=== PATIENT | female | born 1985 | race Caucasian/White ===

== ENCOUNTER → 2018-04-21 | Outpatient (CLI) | payer BC ==
--- NOTE | 2018-04-21 15:51 | XR ---
EXAMINATION TYPE: XR foot complete RT DATE OF EXAM: 04/21/2018 CLINICAL HISTORY: pain TECHNIQUE: Frontal, lateral and oblique images of the right foot are obtained. COMPARISON: None. FINDINGS: There is no acute fracture/dislocation evident. The joint spaces appear within normal olmos its. The overlying soft tissue appears unremarkable. IMPRESSION: There is no acute fracture or dislocation. ICD 10 NO FRACTURE, INITIAL EVALUATION
== END | disposition home or self-care (01) ==
LOC: RADXRYALE 15:37
PROVIDERS: ATTEND Internal Medicine
DX: S99.921A Unspecified injury of right foot, initial encounter (principal)

== ENCOUNTER → 2019-01-28 | Outpatient (CLI) | payer BC ==
--- NOTE | 2019-01-28 12:18 | MM ---
Reason for exam: screening (asymptomatic). Baseline mammogram. History: Family history of breast cancer in grandmother at age 50 and breast cancer in aunt at age 40. Took hormonal contraceptives beginning at age 16. Physical Findings: Nurse did not find any significant physical abnormalities on exam. MG 3D Screening Mammo W/Cad Bilateral CC and MLO view(s) were taken. There is an oval, circumscribed lower inner quadrant posterior depth mass. No suspicious abnormality on the right. These results were verbally communicated with the patient and result sheet given to the patient on 01/28/19. ASSESSMENT: Incomplete: need additional imaging evaluation, BI-RAD 0 RECOMMENDATION: Ultrasound of the left breast. (lower inner quadrant)
--- NOTE | 2019-01-28 12:20 | USB ---
Reason for exam: additional evaluation requested from abnormal screening. History: Family history of breast cancer in grandmother at age 50 and breast cancer in aunt at age 40. Took hormonal contraceptives beginning at age 16. Physical Findings: Breast exam preformed at baseline screening. US Breast Workup Limited LT Left limited breast ultrasound including focal area of concern, retroareolar and axilla demonstrates a 0.7 x 0.4 x 0.5cm hypoechoic lesion at 8 o'clock, correlates with mammographic finding. These results were verbally communicated with the patient and result sheet given to the patient on 01/28/19. ASSESSMENT: Suspicious, BI-RAD 4 RECOMMENDATION: Aspiration of the left breast. (attempt, if unsuccessful convert to biopsy) Called with mammographic findings and has scheduled an appointment for the patient for 02/02/19 at 3:[address] Simmons. PRELIMINARY REPORT CALLED AND FAXED TO DR. SIMMONS ON 01/28/19.
== END | disposition home or self-care (01) ==
LOC: RADMAMWWP 10:46
PROVIDERS: ATTEND Internal Medicine
DX: Z12.31 Encounter for screening mammogram for malignant neoplasm of breast (principal); R92.8 Other abnormal and inconclusive findings on diagnostic imaging of breast
CPT/HCPCS: 77063; 77067

== ENCOUNTER → 2019-03-10 | Day surgery (SDC) | payer BC ==
[2019-03-10 11:43] VITALS: RESP 16; BMI 26.3
[2019-03-10 13:03] VITALS: BP 105/69; PULSE 60; TEMP 97.7
--- NOTE | 2019-03-10 13:03 | USB ---
EXAMINATION TYPE: US biopsy breast VAD LT, MG diagnostic mammo LT wo CAD DATE OF EXAM: 03/10/2019 CLINICAL HISTORY: N63.20 Left breast mass. Abnormal ultrasound and mammogram. TECHNIQUE: Ultrasound guided core biopsy of left breast with clip placement and follow-up diagnostic two-view mammogram. COMPARISON: Prior ultrasound and mammogram January 28, 2019 FINDINGS: The procedure of ultrasound guided core biopsy was explained to the patient. Benefits, alternatives, and risks were discussed. An informed consent was then obtained. The patient was placed in supine positioning for imaging and for the procedure. Preprocedure ultrasound redemonstrates 5 mm hypoechoic anechoic lesion in clock position left breast. The overlying skin was prepped and draped in usual sterile fashion. Lidocaine was used as anesthetic into the skin. Lidocaine with epinephrine is used as anesthetic in the deeper tissue in the left breast. Under ultrasound guidance, a 12-gauge vacuum assisted biopsy gun device was used to obtain 3 core samples. Following this, a biopsy clip was left at site of lesion. The patient tolerated the procedure well without any immediate complication. The patient was kept in the radiology department for short stay after the procedure and then discharged home in stable condition. Postprocedure mammogram shows successful the alignment of left correlating level of concern on preprocedure mammogram without definitive residual oval 6 mm lesion identified. IMPRESSION: Successful, uncomplicated ultrasound guided core biopsy of area of concern in the left breast, full pathology results to follow. Low index of suspicion noted at time of procedure. 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 Appropriately controlled immunohistochemical studies including calponin demonstrates an intact myoepithelial layer around atypical cells forming rigid glandular profiles negative for Cytokeratin 5/6 confirming atypical duct hyperplasia. Recommendation Surgical consult of the left breast. YOSVANY
== END | disposition home or self-care (01) ==
LOC: RADUSWWP 11:21
PROVIDERS: ATTEND Internal Medicine
DX: N62 Hypertrophy of breast (principal); N60.22 Fibroadenosis of left breast
CPT/HCPCS: 88305; 88342; 88341; 77065; 19083; A4648; J2001

== ENCOUNTER → 2019-03-26 | Outpatient (CLI) | payer BC ==
[2019-03-26 13:58] VITALS: BP 129/79; PULSE 78; RESP 16; TEMP 97.7; BMI 26.3
--- NOTE | 2019-03-26 14:19 | P.GSHP ---
History of Present Illness H&P Date: 03/26/19 Chief Complaint: atypia on core biopsy of theleft breast Dalia is a 33-year-old white female who had a routine mammogram performed then . This was her first mammogram and it was bilateral. This was felt to be incomplete and additional workup of the left breast was recommended. She underwent on 01/28/2019 an ultrasound of the left breast which revealed a 0.7 x 0.5 cm hypoechoic lesion at 8:00 for which attempted aspiration/possible biopsy was recommended. This was performed on 2018. Findings at that time revealed some atypia for which needle localization and excision is recommended. The patient does not feel anything of concern in her breast. She has no abnormal nipple discharge or skin changes. She has no history of any trauma or infection in the breast. Family history: 1. maternal grandmother: breast in early 50's 2. maternal great aunt, identical twin to grandmother: breast cancer 3. mother: 7 lumps removed all benign Hormonal History menarche: 10 , breast fed: none, first born at 24 menopause: periods regular BCP: 7 years hormones: none Surgical history: Tonsils Medical history: Negative Social history: Smoke: Occasional Alcohol: Occasional Drugs: Negative - Constitutional Constitutional: Reports sweats, Denies chills, Denies fever - EENT Eyes: denies blurred vision, denies pain Ears: deny: decreased hearing, tinnitus Ears, nose, mouth and throat: Denies headache, Denies sore throat - Breasts Breasts: bilateral: as per HPI - Cardiovascular Cardiovascular: Denies chest pain, Denies shortness of breath - Respiratory Respiratory: Denies cough, Denies 7 - Gastrointestinal Gastrointestinal: Denies abdominal pain, Denies diarrhea, Denies nausea, Denies vomiting - Genitourinary (Female) Genitourinary: Denies dysuria, Denies hematuria - Menstruation Menstruation: Reports period normal - Musculoskeletal Musculoskeletal: Denies myalgias - Integumentary Integumentary: Denies pruritus, Denies rash - Neurological Neurological: Denies numbness, Denies weakness - Psychiatric Psychiatric: Reports depression, Denies anxiety - Endocrine Endocrine: Denies fatigue, Denies weight change - Hematologic/Lymphatic Comment: none - Allergic/Immunologic Allergic/Immunologic: Reports as per HPI Past Medical History Past Medical History: No Reported History History of Any Multi-Drug Resistant Organisms: None Reported Past Surgical History: Tonsillectomy Past Anesthesia/Blood Transfusion Reactions: No Reported Reaction Past Psychological History: Anxiety Smoking Status: Current some day smoker Past Alcohol Use History: Occasional Past Drug Use History: None Reported - Past Family History Mother Family Medical History: No Reported History Medications and Allergies Home Medications Medication Instructions Recorded Confirmed Type Citalopram Hydrobromide [CeleXA] 40 mg PO DAILY 03/06/19 03/26/19 History Allergies Allergy/AdvReac Type Severity Reaction Status Date / Time No Known Allergies Allergy Verified 03/26/19 13:55 Surgical - Exam Vital Signs Temp Pulse Resp BP Pulse Ox 97.7 F 78 16 129/79 99 03/26/19 13:56 03/26/19 13:56 03/26/19 13:56 03/26/19 13:56 03/26/19 13:56 BMI 26.3 - General well developed, well nourished, no distress - Eyes normal ocular movement - ENT no hearing loss, no congestion - Neck no masses, trachea midline - Respiratory normal respiratory effort, clear to auscultation - Cardiovascular Rhythm: regular Heart Sounds: normal: S1, S2 - Abdomen Abdomen: soft, non tender, no guarding, no rigid, no rebound - Integumentary no rash, no abnormal pigmentation - Neurologic no disoriented, no combative - Musculoskeletal normal gait, normal posture - Psychiatric oriented to time, oriented to person, oriented to place, speech is normal, memory intact breast exam: Right breast: Multiple positional exam fibrocystic changes dense breast tissue Right axilla: No adenopathy of concern Left breast: Multi-positional exam well-healed scar from prior core biopsy no dominant masses or nodules of concern fibrocystic changes Left axilla: No adenopathy of concern Results Mammogram and ultrasound reviewed Assessment and Plan Assessment: Impression: 1. Mammographic abnormality left breast 2. Ultrasound abnormality left breast 2. The cystic breast changes 4. Positive family history of breast cancer 5. Atypia noted on core biopsy of left breast Plan: 1. Needle local excisional biopsy area of atypia left breast 2. Follow-up after biopsy Dr. Simmons
== END | disposition home or self-care (01) ==
LOC: WWCWWP 13:41
PROVIDERS: ATTEND Surgery
DX: Z53.9 Procedure and treatment not carried out, unspecified reason (principal)

== ENCOUNTER → 2019-04-28 | Day surgery (SDC) | payer BC ==
[2019-04-24 11:28] VITALS: BMI 25.9
[~2019-04-28] MED LIST: ALBUTEROL INHALER 60 PUFF/8 GM INHALER INHALATION ONE; ALPRAZolam 0.5 MG TAB PO ONE; DEXAMETHASONE SOD PHOSPHATE 10 MG/ML 1 ML VIAL IV ONE; HEPARIN SODIUM,PORCINE 5,000 UNIT/ML 1 ML VIAL SQ ONE; HYDROcodone/APAP 5-325MG 1 EACH TAB PO ONE; HYDROmorphone (PF) 1 MG/ML ONE; HYDROmorphone 0.5 MG/0.5 ML SYRINGE IVP PRN; LACTATED RINGERS 1,000 ML IV SCH; LIDOCAINE (PF) 10 MG/ML 2 ML VIAL SQ ONE; LIDOCAINE 1% 20 ML VIAL (10MG/ML) FOR IV START INTRADERMA ONE; LIDOCAINE 1% INJ 10MG/ML (20 ML MDV) ONE; LIDOCAINE 1% INJ 10MG/ML (20 ML MDV) SQ ONE; MIDAZOLAM 2 MG/2 ML VIAL IV PRN; MIDAZOLAM 2 MG/2 ML VIAL ONE; ONDANSETRON 4 MG/2 ML VIAL IVP ONE; PROPOFOL 10 MG/ML 20 ML VIAL IV ONE; SCOPOLAMINE 1.5MG/72HR PATCH TRANSDERM ONE; SUCCINYLCHOLINE CHLORIDE 100 MG/5 ML SYR IV ONE; fentaNYL (PF) 50 MCG/ML 2 ML AMP ONE
--- NOTE | 2019-04-28 11:07 | P.OP ---
Date of Procedure: 04/28/19 Preoperative Diagnosis: Core biopsy revealing atypia in the left breast Postoperative Diagnosis: Same Procedure(s) Performed: Left breast needle localization and excisional biopsy with onco-plastic technique and tissue transfer Anesthesia: BECKY Surgeon: Elli Sousa Estimated Blood Loss (ml): 5 IV fluids (ml): 400 Pathology: other (Breast tissue) Condition: stable Disposition: same day Indications for Procedure: Biopsy left breast revealing atypia Operative Findings: Dense breast tissue Description of Procedure: The patient is a 33-year-old white female status post ultrasound-guided core biopsy. The left breast. This revealed atypia and she was recommended to undergo needle localization and excisional biopsy. Following needle localization of the area of concern in the left breast the patient was taken to the operating room. Following induction of general anesthesia the left breast was prepped and draped in a sterile fashion. A circumareolar incision was made and carried down to the subcutaneous tissue between the skin and the breast. Dissection in this plane was carried through to the area of insertion of the needle. The shaft of the needle was identified. This was brought through the skin and tissue was grasped using an Allis clamp. There was resection of the needle was performed carefully dissecting down to the pectoralis major muscle. The specimen was then removed and painted for orientation. It was sent to x-ray and radiographs the specimen revealed the area of concern had been removed was obtained. Titanium clips were placed in the biopsy cavity. The tissue pedicle superiorly and inferiorly were mobilized approximately 5 cm x 2 cm for the superior tissue pedicle and approximately 5 cm x 2 cm for the inferior tissue pedicle. The mobilization was in the tissue between the skin and the breast tissue superficially and on the pectoralis pectoralis major muscle posteriorly. The tissue was then mobilized into place a further biopsy cavity defect. It was secured using 3-0 Vicryl suture. This was done after hemostasis had been assured. A total of 20cc's. of breast tissue was mobilized. The subcutaneous closure was then performed using 4-0 [place]-Dae. The skin was closed using 4-0 Ethibond. Steri-Strips were applied. The patient tolerated the procedure in stable condition.
--- NOTE | 2019-04-28 11:08 | P.DS ---
Providers Attending physician: Elli Sousa Primary care physician: Radha Simmons Plan - Discharge Summary Discharge Rx Participant: No New Discharge Prescriptions: No Action Citalopram Hydrobromide [CeleXA] 40 mg PO QAM Discharge Medication List Citalopram Hydrobromide [CeleXA] 40 mg PO QAM 03/06/19 [History] Follow up Appointment(s)/Referral(s): Elli Sousa MD [STAFF PHYSICIAN] - 1 Week Activity/Diet/Wound Care/Special Instructions: Do not drive today Do not drive if taking narcotic pain medication Patient may shower after 48 hours We're bra at all times unless showering until seen by DR. Dias Discharge Disposition: HOME SELF-CARE
[2019-04-28 11:23] VITALS: TEMP 97.4
[2019-04-28 12:04] VITALS: RESP 16
[2019-04-28 13:08] VITALS: BP 105/67; PULSE 71
--- NOTE | 2019-04-30 13:23 | MM ---
MG Pre Op Needle Loc LT Radiologist: Jessica Barcenas D.O. Radiologist EXAMINATION TYPE: MG pre op needle loc LT, MG surgical specimen LT DATE OF EXAM: 04/28/2019 COMPARISON: Left ultrasound and mammogram dated 01/28/2019 and biopsy dated 03/10/2019 CLINICAL HISTORY: Atypical ductal hyperplasia of the left breast at the 8:00 position on ultrasound guided biopsy of 03/10/2019 for which needle localization was requested. TECHNIQUE: Needle localization with wire placement and surgical excision of area of concern in the left breast. FINDINGS: The procedure of needle localization with wire placement and than surgical excision was explained to the patient. Benefits, alternatives, and risks were discussed. An informed consent was then obtained. Preprocedural timeout was performed. The shortest pathway for procedure was chosen. Shortest pathway was medial to lateral approach. The overlying skin was prepped and draped in usual sterile fashion. 10 cc of 1% lidocaine was used as anesthetic into the skin and subcutaneous tissue up to the level of area of concern. A 5 cm needle was used. It was placed via a medial collateral approach under mammographic guidance. Subsequent 90 degrees mammogram show the needle to be in satisfactory position relative to the targeted area. At this point, wire was placed and the needle was withdrawn. The wire was fixed to patient's skin. Images were marked for surgeon. The patient tolerated the procedure well without any immediate complication. The patient was kept in the radiology department for short stay after the procedure and then taken to surgery for surgical excision. Targeted biopsy marker and wire are identified in specimen mammogram. The patient was kept in hospital for short stay after the procedure and then discharged home in stable condition. IMPRESSION: Successful, uncomplicated needle localization with wire placement and surgical excision of a targeted biopsy marker and surrounding tissue demarcating the biopsy-proven atypical ductal hyperplasia of the left breast at the 8:00 position, full pathology results to follow. Pathology Results: Benign LEFT BREAST, NEEDLE LOCALIZATION EXCISION: Fibroadenoma, completely excised. Background fibrocystic changes. RECOMMENDATION: Ultrasound of the left breast in 6 months. [facility]
== END | disposition home or self-care (01) ==
LOC: OR 07:30
PROVIDERS: ATTEND Surgery
DX: D24.2 Benign neoplasm of left breast (principal); N60.92 Unspecified benign mammary dysplasia of left breast; F39 Unspecified mood [affective] disorder; Z79.899 Other long term (current) drug therapy
CPT/HCPCS: 81025; 88307; 76098; 19281; 19125; J2250; J2001 ×2; J1644; J1100; J2405; J3010; J1170; J0330; J2704

== ENCOUNTER → 2019-05-07 | Outpatient (CLI) | payer BC ==
[2019-05-07 15:36] VITALS: BP 121/83; PULSE 83; RESP 18; TEMP 98.3; BMI 25.8
--- NOTE | 2019-05-07 15:37 | P.PN ---
Progress Note - Text Progress Note Date: 05/07/19 Dalia is status post needle localization and excisional biopsy of an area of the left breast which was noted to have atypia on core biopsy. Pathology reveals fibroadenoma. Postoperatively the patient has no complaints. Physical exam: Periareolar incision clean and dry no evidence of hematoma or ecchymosis Impression: 1. Patient postop needle local excisional biopsy of area of atypia in the left breast/this was fibroadenoma Plan: 1. Left breast mammogram and ultrasound in 6 months with physician exam at that time Cc: Dr. Simmons
== END | disposition home or self-care (01) ==
LOC: WWCWWP 15:25
PROVIDERS: ATTEND Surgery
DX: Z53.9 Procedure and treatment not carried out, unspecified reason (principal)

== ENCOUNTER → 2020-04-13 | Outpatient (CLI) | payer BC | END | disposition home or self-care (01) | LOC: LABWHC1 09:47 | PROVIDERS: ATTEND Internal Medicine | DX: R53.83 Other fatigue (principal) | CPT/HCPCS: U0003; C9803 ==

== ENCOUNTER → 2020-11-11 | Outpatient (CLI) | payer BC ==
--- NOTE | 2020-11-11 14:53 | P.PN ---
Subjective Progress Note Date: 11/11/20 Principal diagnosis: abnormal mammogram Dalia is a 34-year-old white female who had a routine mammogram performed on . This was her first mammogram and it was bilateral. This was felt to be incomplete and additional workup of the left breast was recommended. She underwent this on 01/28/2019 an ultrasound of the left breast revealed a 0.7 x 0.5 cm hypoechoic lesion at 8:00 for which attempted aspiration/possible biopsy was recommended. This was performed on . Findings at that time revealed some atypia for which needle localization and excision was recommended. An open biopsy of this area was done via needle localization. Pathology was a fibroadenoma completely excised. He does not feel any lumps masses or nodules of concern in either breast. She is not complaining of any nipple discharge breast pain or changes of concern. She had a recent bilateral mammogram on 11-11-20 after which a left breast ultrasound was recommended. Left breast ultrasound did not reveal any lesions of concern however on the left breast mammogram and a new area there was a region for which stereotactic core biopsy was recommended. Caffeine: 2 coffees a day Nicotine: Half a pack per day for 15 years Chocolate: Negative Hormones: Negative Family history: 1. maternal grandmother: breast in early 50's 2. maternal great aunt, identical twin to grandmother: breast cancer 3. mother: 7 lumps removed all benign Hormonal History menarche: 10 , breast fed: none, first born at 24 menopause: periods regular BCP: 7 years stopped d5 years ago hormones: none Surgical history: Tonsils breast biopsy Medical history: Negative Social history: Smoke: 1/2 PPD Alcohol: Occasional Drugs: Negative - Constitutional Constitutional: Reports sweats, Denies chills, Denies fever - EENT Eyes: denies blurred vision, denies pain Ears: deny: decreased hearing, tinnitus Ears, nose, mouth and throat: Denies headache, Denies sore throat - Breasts Breasts: bilateral: as per HPI - Cardiovascular Cardiovascular: Denies chest pain, Denies shortness of breath - Respiratory Respiratory: Denies cough - Gastrointestinal Gastrointestinal: Denies abdominal pain, Denies diarrhea, Denies nausea, Denies vomiting - Genitourinary (Female) Genitourinary: Denies dysuria, Denies hematuria - Menstruation Menstruation: Reports period normal - Musculoskeletal Musculoskeletal: Denies myalgias - Integumentary Integumentary: Denies pruritus, Denies rash - Neurological Neurological: Denies numbness, Denies weakness - Psychiatric Psychiatric: Reports depression, Denies anxiety - Endocrine Endocrine: Denies fatigue, Denies weight change - Hematologic/Lymphatic Comment: none - Allergic/Immunologic Allergic/Immunologic: Reports as per HPI Objective - Vital Signs Vital signs: Intake & Output 11/10/20 11/11/20 11/11/20 18:59 06:59 18:59 Weight 85.729 kg - Exam BMI 29.6 - Constitutional General appearance: Present: average body habitus - EENT Eyes: Present: EOMI ENT: Present: hearing grossly normal - Neck Neck: Present: normal ROM - Respiratory Respiratory: bilateral: CTA - Cardiovascular Rhythm: regular Heart sounds: normal: S1, S2 - Musculoskeletal Musculoskeletal: Present: gait normal - Psychiatric Psychiatric: Present: A&O x's 3, appropriate affect, intact judgment & insight - Additional findings Additional findings: Breast exam: BRA: 36C inspection: Grade 1/2 ptosis bilateral Palpation: Right breast: Multi-positional exam fibrocystic changes no dominant masses or nodules of concern Right axilla: No adenopathy of concern Left breast: Multiple positional exam fibrocystic changes no dominant masses or nodules of concern Left axilla: No adenopathy of concern Over the chest and back the patient has some depigmentation which she states has been progressive over the last 2 years. Assessment and Plan Assessment: Impression: 1. Recent mammographic abnormality left breast an area remote from removal of prior fibroadenoma 2. Dense fibroglandular fibrocystic breast changes 3. Depigmentation of skin over her chest and upper back consider appointment with dermatology 4. Patient status post removal of fibroadenoma in the past Plan: 1. Stereotactic core biopsy left breast 2. Appointment with dermatology Cc: Dr. Edy Kim skin benefits of the procedure discussed with the patient. Risks include but are not limited to bleeding, infection, reaction to the anesthetic. Additionally the possibility that we would not see the areas discussed with the patient. Patient understands and wishes to proceed. The areas of depigmentation of her skin had been recommended to be evaluated by dermatology.
--- NOTE | 2020-11-11 14:57 | MM ---
Reason for exam: additional evaluation requested from prior study. Last mammogram was performed 1 year and 8 months ago. History: Patient has history of high-risk lesion on a previous biopsy at age 33. Family history of breast cancer in grandmother at age 50 and breast cancer in aunt at age 40. Benign MG pre op needle loc LT of the left breast, April 28, 2019. High risk US biopsy breast VAD LT of the left breast, March 10, 2019. Took hormonal contraceptives beginning at age 16. Physical Findings: Nurse did not find any significant physical abnormalities on exam. MG 3D Diag Mammo W/Cad NIA Bilateral CC and MLO view(s) were taken. Prior study comparison: March 10, 2019, left breast MG diagnostic mammo LT wo CAD. January 28, 2019, bilateral MG 3d screening mammo w/cad. The breast tissue is heterogeneously dense. This may lower the sensitivity of mammography. Previous mammotome biopsy in the left breast. Prominent axillary nodes probably related to recent covid vaccination. New 1cm ovoid isodense circumscribed mass 12 o'clock left breast. These results were verbally communicated with the patient and result sheet given to the patient on 11/11/20. ASSESSMENT: Incomplete: need additional imaging evaluation, BI-RAD 0 RECOMMENDATION: Ultrasound of the left breast. (12 o'clock)
--- NOTE | 2020-11-11 14:59 | USB ---
Reason for exam: additional evaluation requested from abnormal screening. History: Patient has history of high-risk lesion on a previous biopsy at age 33. Family history of breast cancer in grandmother at age 50 and breast cancer in aunt at age 40. Benign MG pre op needle loc LT of the left breast, April 28, 2019. High risk US biopsy breast VAD LT of the left breast, March 10, 2019. Took hormonal contraceptives beginning at age 16. US Breast Limited LT Left limited breast ultrasound including focal area of concern, retroareolar and axilla demonstrates no cystic or solid lesion seen. These results were verbally communicated with the patient and result sheet given to the patient on 11/11/20. ASSESSMENT: Suspicious, BI-RAD 4 RECOMMENDATION: Stereotactic core biopsy of the left breast. Called office with mammographic findings and has scheduled an appointment for the patient for 11/11/[address] Sousa. Biopsy scheduled for 12/09/20 at 8:00. PRELIMINARY REPORT CALLED AND FAXED TO DR. SOUSA ON 11/11/20.
== END | disposition home or self-care (01) ==
LOC: RADMAMWWP 13:02
PROVIDERS: ATTEND Surgery
DX: R92.8 Other abnormal and inconclusive findings on diagnostic imaging of breast (principal); Z80.3 Family history of malignant neoplasm of breast
CPT/HCPCS: 77062; 77066

== ENCOUNTER → 2020-11-11 | Outpatient (CLI) | payer BC ==
[2020-11-11 14:41] VITALS: BP 132/85; PULSE 64; RESP 18; TEMP 98
== END ==
LOC: WWCWWP 14:34
PROVIDERS: ATTEND Surgery
DX: Z53.9 Procedure and treatment not carried out, unspecified reason (principal)

== ENCOUNTER → 2020-12-09 | Day surgery (SDC) | payer BC ==
[2020-12-09 07:21] VITALS: BP 110/73; PULSE 73; RESP 16; TEMP 98
--- NOTE | 2020-12-09 11:36 | P.PN ---
Progress Note - Text Progress Note Date: 12/09/20 Dalia is a 34-year-old white female who was scheduled for stereotactic core biopsy of the left breast. She was placed on the stereotactic core biopsy table and the area of concern was not able to be seen definitively. The radiographs were reviewed with Dr. Song, and the lesion was felt to be real but could not be well seen on the supervisor pumping station films. Therefore it is recommended that a 3-D stereo biopsy be performed. This was discussed with the patient. She is being scheduled for a 3-D stereo biopsy at [facility] after which she will follow-up here. CC: Dr. Snow
--- NOTE | 2020-12-12 09:13 | MM ---
EXAMINATION TYPE: MG discontinued stereo core LT DATE OF EXAM: 12/09/2020 COMPARISON: 03/10/2019 04/28/2019 CLINICAL HISTORY: Stereotactic biopsy by Dr. Gael Dias for nodular region. TECHNIQUE: Stereotactic guided core biopsy of left breast. FINDINGS: The procedure of stereotactic guided core biopsy was explained to the patient. Benefits, a lternatives, and risks were discussed. An informed consent was then obtained. The area of nodularity was difficult to identify due to surrounding dense breast tissue on this stere otactic machinery . The stereotactic biopsy was canceled and will be rescheduled at a site where the 3-D stereotactic biopsy is available. IMPRESSION: Discontinued STEREOTACTIC GUIDED CORE BIOPSY OF AREA OF CONCERN IN THE left breast. The stereotactic biopsy was canceled and will be rescheduled at a site where the 3-D stereotactic biopsy is available.
== END ==
LOC: RADMAMWWP 07:09
PROVIDERS: ATTEND Surgery
DX: N63.20 Unspecified lump in the left breast, unspecified quadrant (principal); Z53.9 Procedure and treatment not carried out, unspecified reason

== ENCOUNTER → 2021-01-06 | Outpatient (CLI) | payer BC ==
[2021-01-06 13:34] VITALS: BP 118/82; PULSE 62; RESP 16; TEMP 98.3
--- NOTE | 2021-01-06 13:48 | P.PN ---
Subjective Progress Note Date: 01/06/21 Principal diagnosis: fibrocystic changes left breast Dalia is a 35-year-old white female status post stereotactic core biopsy left breast [place] [id number]. Pathology was benign. This was reviewed by Dr. Amador and felt to be benign and concordant. The patient tolerated the pr ocedure without difficulty. Pathology revealed fragments of breast tissue, fibrocystic changes and intraductal microcalcifications. Objective - Vital Signs Vital signs: Vital Signs Temp 98.3 F 01/06/21 13:32 Pulse 62 01/06/21 13:32 Resp 16 01/06/21 13:32 BP 118/82 01/06/21 13:32 Pulse Ox 98 01/06/21 13:32 Intake & Output 01/05/21 01/06/21 01/06/21 18:59 06:59 18:59 Weight 86.183 kg - Exam BMI 29.8 - Constitutional General appearance: Present: average body habitus - EENT Eyes: Present: EOMI ENT: Present: hearing grossly normal - Neck Neck: Present: normal ROM - Psychiatric Psychiatric: Present: A&O x's 3, appropriate affect, intact judgment & insight - Additional findings Additional findings: Biopsy site left breast clean and dry, no evidence of infection, no evidence of hematoma Assessment and Plan Assessment: Impression: 1. Patient status post posterior tactic core biopsy left breast and [id number] benign concordant Plan: 1. Left breast mammogram in 6 months with physician exam at that time Cc: Dr. Snow
== END ==
LOC: WWCWWP 12:56
PROVIDERS: ATTEND Surgery
DX: N60.92 Unspecified benign mammary dysplasia of left breast (principal); F17.200 Nicotine dependence, unspecified, uncomplicated

== ENCOUNTER → 2021-07-28 | Outpatient (CLI) | payer BC ==
--- NOTE | 2021-07-31 10:12 | MM ---
Reason for exam: follow-up at short interval from prior study. Last mammogram was performed 8 months ago. History: Patient has history of high-risk lesion on a previous biopsy at age 33. Family history of breast cancer in grandmother at age 50 and breast cancer in aunt at age 40. MG discontinued stereo core LT of the left breast, December 09, 2020. Benign MG pre op needle loc LT of the left breast, April 28, 2019. High risk US biopsy breast VAD LT of the left breast, March 10, 2019. Took hormonal contraceptives beginning at age 16. Physical Findings: Nurse did not find any significant physical abnormalities on exam. MG 3D Diag Mammo W/Cad LT CC and MLO view(s) were taken of the left breast. Prior study comparison: November 11, 2020, bilateral MG 3d diag mammo w/cad NIA. March 10, 2019, left breast MG diagnostic mammo LT wo CAD. There are scattered fibroglandular densities. Previous mammotome biopsy in the left breast. Surgical clip left breast. No significant new findings when compared with previous films. These results were verbally communicated with the patient and result sheet given to the patient on 07/28/21. ASSESSMENT: Probably benign, BI-RAD 3 RECOMMENDATION: Follow-up diagnostic mammogram of both breasts in 6 months.
== END | disposition home or self-care (01) ==
LOC: RADMAMWWP 10:56
PROVIDERS: ATTEND Surgery
DX: N64.89 Other specified disorders of breast (principal); Z80.3 Family history of malignant neoplasm of breast
CPT/HCPCS: 77061; 77065

== ENCOUNTER → 2023-12-26 | Outpatient (CLI) | payer BC ==
--- NOTE | 2023-12-26 09:08 | XR ---
EXAMINATION TYPE: XR shoulder complete 3 views RT DATE OF EXAM: 12/26/2023 Comparison: None Clinical History: 38-year-old female pain, M75.51 BURSITIS OF RIGHT SHOULDER Findings: AC joint is congruent and intact. Subacromial space is preserved. No delineation to the greater tuber osity. No acute fracture, subluxation, dislocation. Visualized right hemithorax is clear. Impression: No acute osseous abnormality seen. If symptoms persist, consider MRI.
== END | disposition home or self-care (01) ==
LOC: RADXRMAIN 08:41
PROVIDERS: ATTEND Internal Medicine Endocrinology, Diabetes & Metabolism
DX: M75.51 Bursitis of right shoulder (principal)

== ENCOUNTER → 2024-07-03 | Outpatient (CLI) | payer BC ==
--- NOTE | 2024-07-03 13:18 | MM ---
Reason for Exam: Hx of benign breast biopsy. Last mammogram was performed 3 year(s) and 8 month(s) ago. Patient History: Menarche at age 10. First Full-Term at age 24. Hormonal Contraceptives, from age 16 until age 26. 04/28/2019, Benign Core Biopsy on the left side. 03/10/2019, High risk Core Biopsy on the left side. 12/09/2020, MG discontinued stereo core LT on the left side. Maternal grandmother had breast cancer, age 50. Maternal aunt had breast cancer, age 40. Risk Values: Radha 5 year model risk: 1.6%. NCI Lifetime model risk: 19.4%. Prior Study Comparison: 01/28/2019 Bilateral Screening Mammogram, [facility]. 01/28/2019 Left Diagnostic Ultrasound, [facility]. 03/10/2019 Left Diagnostic Mammogram, [facility]. 11/11/2020 Bilateral Diagnostic Mammogram, [facility]. 11/11/2020 Left Diagnostic Ultrasound, [facility]. 07/28/2021 Left Diagnostic Mammogram, [facility]. Tissue Density: The breasts are heterogeneously dense, which may obscure small masses. Findings: Analyzed By CAD. The pattern is symmetrical. Parenchymal density may be increasing over the interval. No suspicious focal abnormality identified Surgical clip and a core marker is within the left breast. No suspicious groups of microcalcifications, spiculated or lobular masses, architectural distortion or other secondary signs of malignancy are mammographically apparent. Overall Assessment: Benign, BI-RAD 2 Management: Screening Mammogram of both breasts in 1 year. A negative mammogram report should not preclude additional follow up of suspicious palpable abnormalities. Patient should continue monthly self breast exam. A clinical breast exam by your physician is recommended on an annual basis and results should be correlated with mammographic findings. Note on Radha scores and lifetime risk: 1. A Radha score greater than 3% is considered moderate risk. If this is the case, consider specialist referral to assess eligibility for a risk reducing agent. 2. If overall lifetime risk for the development of breast cancer is 20% or higher, the patient may qualify for future screening with alternating mammogram and breast MRI. [facility], , 07/03/2024 1:15 PM. Electronically signed and approved by: Clarence Amador D.O. Radiologis
== END | disposition home or self-care (01) ==
LOC: RADMAMWWP 12:40
PROVIDERS: ATTEND Surgery
DX: R92.8 Other abnormal and inconclusive findings on diagnostic imaging of breast (principal); Z80.3 Family history of malignant neoplasm of breast; R92.333 Mammographic heterogeneous density, bilateral breasts
CPT/HCPCS: 77062; 77066